=== PATIENT | male | born 1975 | race Caucasian/White ===

== ENCOUNTER 2022-12-19 21:14 | Emergency (ER) | payer OTHER ==
[~2022-12-19] VITALS: Ht 185.4 cm; Wt 95.0 kg
[2022-12-19 21:37] VITALS: BP 147/96; PULSE 100; RESP 18; TEMP 98.6; O2SAT 99
== END 2022-12-19 23:01 ==
LOC: ER 21:14
DX: Z04.1 Encounter for examination and observation following transport accident (principal); Z88.2 Allergy status to sulfonamides; V98.8XXA Other specified transport accidents, initial encounter; Y93.89 Activity, other specified; Y92.89 Other specified places as the place of occurrence of the external cause; Y99.8 Other external cause status
CPT/HCPCS: 99283

== ENCOUNTER 2022-12-20 17:45 | Emergency (ER) | payer OTHER ==
[~2022-12-20] VITALS: Ht 190.5 cm; Wt 87.0 kg
[2022-12-20 17:46] VITALS: BP 148/96; PULSE 96; RESP 18; TEMP 98.6; O2SAT 96
== END 2022-12-21 04:33 | disposition left against medical advice (07) ==
LOC: ER 17:45
DX: R11.0 Nausea (principal); Z53.21 Procedure and treatment not carried out due to patient leaving prior to being seen by health care provider
CPT/HCPCS: 99281